=== PATIENT | male | born 1985 | race American Indian/Alaskan Native ===

== ENCOUNTER 2016-09-28 08:41 | Emergency (ER) | payer SELFPAY ==
[2016-09-28 09:24] LABS: Basophils % (Auto) 0.5 % (0.0-1.8); Eosinophils % (Auto) 5.3 % (0.0-4.3); Hematocrit 42.3 % (35.5-45.6); Hemoglobin 13.4 gm/dl (11.8-15.2); Mean Corpuscular HGB Conc 32 % (32-34); Mean Corpuscular Volume 73 fl (84-94); Platelet Count 239 K/mm3 (140-440); Red Blood Count 5.82 M/mm3 (3.65-5.03); White Blood Count 5.7 K/mm3 (4.5-11.0)
[2016-09-28 09:38] LABS: Alanine Aminotransferase 17 units/L (7-56); Albumin 3.9 g/dL (3.9-5); Albumin/Globulin Ratio 1.2 %; Alkaline Phosphatase 64 units/L (35-129); Anion Gap 16 mmol/L; Blood Urea Nitrogen 11 mg/dL (9-20); Calcium 8.7 mg/dL (8.4-10.2); Carbon Dioxide 24 mmol/L (22-30); Chloride 102.6 mmol/L (98-107); Glucose 86 mg/dL (75-100); Lipase 19 units/L (13-60); Potassium 4.3 mmol/L (3.6-5.0); Sodium 138 mmol/L (137-145); Total Protein 7.2 g/dL (6.3-8.2)
[2016-09-28 09:51] LABS: Mean Corpuscular Hemoglobin 23 pg (28-32)
[2016-09-28 09:51] LABS: Bilirubin,Urine NEG (Negative); Blood,Urine NEG (Negative); Ketones,Urine NEG (Negative); Leukocyte Esterase,Urine NEG (Negative); Nitrite,Urine NEG (Negative); Protein,Urine <15 mg/dL mg/dL (Negative); Urobilinogen,Urine < 2.0 mg/dL (<2.0)
[2016-09-28 10:03] LABS: INR 0.95 (0.87-1.13)
[2016-09-28 10:05] LABS: Partial Thromboplastin Time 29.4 Sec. (24.2-36.6)
[2016-09-28] MEDS ORDERED: BABY ASPIRIN PO ONE (12:24)
--- NOTE | 2016-09-28 12:24 | Emergency Department Report ---
HPI - General Chief Complaint: Chest Pain Time Seen by Provider: 09/28/16 11:57 - HPI HPI: This is a 30-year-old Afro-[place] male presents the emergency department with a seven-day history of left-sided chest discomfort with occasional radiation to the left arm. He describes it as a poking or stabbing sensation. He developed some shortness of breath earlier today but denies any respiratory distress. He denies any fever, nausea, vomiting, cough, back pain, or diaphoresis. He tried some Nexium for his discomfort yesterday one time without any relief. He has a family history of some early cardiac disease in both his mother and maternal grandmother. No recent travel or sick contacts at home. He denies tobacco or illicit drug use or abuse. ED Past Medical Hx - Past Medical History Previous Medical History?: No - Surgical History Past Surgical History?: No - Social History Smoking Status: Never Smoker Substance Use Type: None - Medications Home Medications: Home Medications Medication Instructions Recorded Confirmed Last Taken Type Ibuprofen [Motrin 800 MG tab] 800 mg PO Q8HR PRN #20 tablet 09/28/16 Unknown Rx ED Review of Systems ROS: Stated complaint: CHEST PAIN/ARM PAIN/ABD PAIN Other details as noted in HPI Comment: All other systems reviewed and negative Constitutional: denies: chills, fever Eyes: denies: eye pain, eye discharge, vision change ENT: denies: ear pain, throat pain Respiratory: shortness of breath. denies: cough, wheezing Cardiovascular: chest pain. denies: palpitations Gastrointestinal: denies: abdominal pain, nausea, diarrhea Genitourinary: denies: urgency, dysuria Musculoskeletal: denies: back pain, joint swelling, arthralgia Skin: denies: rash, lesions Neurological: denies: headache, weakness, paresthesias Physical Exam - Physical Exam Vital Signs: Vital Signs 09/28/16 09/28/16 08:51 12:04 Temperature 98.1 F Pulse Rate 84 76 Respiratory 16 18 Rate Blood Pressure 161/99 Blood Pressure 140/98 [Left] O2 Sat by Pulse 100 100 Oximetry Physical Exam: GENERAL: The patient is well-developed well-nourished. HEENT: Normocephalic. Atraumatic. Extraocular motions are intact. Patient has moist mucous membranes. Pupils equal reactive to light bilaterally. NECK: Supple. Trachea is midline. CHEST/LUNGS: Clear to auscultation. There is no respiratory distress noted. Chest pain is reproducible to palpation of the chest wall. HEART/CARDIOVASCULAR: Regular. There is no tachycardia. There is no gallop rub or murmur. ABDOMEN: Abdomen is soft, nontender. Patient has normal bowel sounds. There is no abdominal distention. SKIN: Skin is warm and dry. NEURO: The patient is awake, alert, and oriented. The patient is cooperative. The patient has no focal neurologic deficits. The patient has normal speech. MUSCULOSKELETAL: There is no tenderness or deformity. There is no limitation range of motion. There is no evidence of acute injury. ED Course Vital Signs 09/28/16 09/28/16 08:51 12:04 Temperature 98.1 F Pulse Rate 84 76 Respiratory 16 18 Rate Blood Pressure 161/99 Blood Pressure 140/98 [Left] O2 Sat by Pulse 100 100 Oximetry ED Medical Decision Making - Lab Data Result diagrams: 09/28/16 09:04 09/28/16 09:04 - EKG Data -: EKG Interpreted by Me EKG shows normal: sinus rhythm, axis, intervals, QRS complexes (early repolarization, LVH), ST-T waves Rate: normal - EKG Data When compared to previous EKG there are: previous EKG unavailable Interpretation: other (sinus rhythm, LVH, early repolarization) - Radiology Data Radiology results: image reviewed interpreted by me: Chest x-ray did not show any acute process. Heart is normal shape and size. No effusions. No pneumothorax. No signs of pneumonia seen. - Medical Decision Making 30-year-old male presents emergency Department with a one-week history of some chest discomfort. EKG does not show any signs of ST elevation MO or ischemia. Labs are grossly unremarkable including negative troponins 3 and a negative d- dimer. Chest x-ray does not show any acute process. The chest pain is reproducible. Heart and lung sounds are normal to auscultation. He is low on the hard score criteria. He has a SHANNON score of 0 HIS pain is considered angina which I do not believe it is. The patient was given a referral for cardiology as there is some family history but his current symptoms today appear more consistent with costochondritis than coronary artery disease. He will return to the ER with any worsening of symptoms or any acute distress. - Differential Diagnosis MO, costochondritis, PE, pneumonia, GERD Critical Care Time: No Critical care attestation.: If time is entered above; I have spent that time in minutes in the direct care of this critically ill patient, excluding procedure time. ED Disposition Clinical Impression: Costochondritis Chest pain Qualifiers: Chest pain type: unspecified Qualified Code(s): R07.9 - Chest pain, unspecified Disposition: TO HOME OR SELFCARE Is pt being admited?: No Condition: Stable Instructions: Chest Pain (ED), Costochondritis (ED) Additional Instructions: Please follow-up with your primary care physician in the next few days. 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 Anaya, in case you would like to follow-up regarding your recent chest pain and family history. Return to the emergency department with any worsening of your symptoms or any acute distress. Prescriptions: Ibuprofen [Motrin 800 MG tab] 800 mg PO Q8HR PRN #20 tablet PRN Reason: Pain Referrals: PRIMARY MD CHELI [Primary Care Provider] - 3-5 Days DWAYNE ANAYA MD [Staff Physician] - 3-5 Days Time of Disposition: 14:56
--- NOTE | 2016-09-28 12:42 | XRay Report ---
ABDOMINAL SERIES: History: Chest pain, abdominal pain. Erect chest film shows no acute or significant changes involving the heart or lung clarke. There is no evidence of free air beneath the diaphragms. The gas pattern within the abdomen is unremarkable. There is no evidence of bowel dilatation, significant air-fluid levels, or masses. Organ shadows are unremarkable. IMPRESSION: Abdominal series within normal limits.
[2016-09-28] MEDS ORDERED: TORADOL IM ONE (13:08)
[2016-09-28] MEDS ORDERED: NORCO 5/325 PO ONE (13:58)
[2016-09-28 16:01] VITALS: BP 131/80
== END 2016-09-28 16:00 | disposition home or self-care (01) ==
LOC: ED 08:41
DX: M94.0 Chondrocostal junction syndrome [Tietze] (principal)
CPT/HCPCS: 36415; 74022; 80053; 81001; 83690; 84484; 85025; 85379; 85610; 85730; 93005; 93010; 96372; 99285; J1885